=== PATIENT | female | born 2000 | race African-American/Black ===

== ENCOUNTER → 2019-05-30 | Emergency (ER) | payer OTHER ==
[~2019-05-30] VITALS: Ht 167.6 cm; Wt 61.2 kg
[2019-05-30 09:21] VITALS: BP 84/61
== END ==
LOC: ER 09:15
DX: Z53.21 Procedure and treatment not carried out due to patient leaving prior to being seen by health care provider (principal)

== ENCOUNTER 2019-09-04 17:47 | Emergency (ER) | payer OTHER ==
[~2019-09-04] VITALS: Ht 170.2 cm; Wt 52.2 kg
[2019-09-04 17:59] VITALS: BP 118/71
== END 2019-09-04 18:50 | disposition home or self-care (01) ==
LOC: ER 17:47
DX: O26.891 Other specified pregnancy related conditions, first trimester (principal); J34.89 Other specified disorders of nose and nasal sinuses; F17.210 Nicotine dependence, cigarettes, uncomplicated; Z3A.01 Less than 8 weeks gestation of pregnancy; Z71.1 Person with feared health complaint in whom no diagnosis is made

== ENCOUNTER 2020-09-21 13:14 | Emergency (ER) | payer OTHER ==
[~2020-09-21] VITALS: Ht 170.2 cm; Wt 49.9 kg
[2020-09-21 13:16] VITALS: BP 119/77
[2020-09-21] MEDS ORDERED: PRED FORTE 1% EY5 M1 LT. EYE (13:23)
[2020-09-21] MEDS ORDERED: PRELONE15 MG/5 ML PO (13:58)
[2020-09-21] MEDS ORDERED: MAGIC MOUTHWASH SW&SWALLOW (13:58)
[2020-09-21] MEDS ORDERED: CEPACOL SORE T1 EAC8 PO (14:08)
== END 2020-09-21 14:07 | disposition home or self-care (01) ==
LOC: ER 13:14
DX: J02.9 Acute pharyngitis, unspecified (principal); F17.210 Nicotine dependence, cigarettes, uncomplicated; Z88.8 Allergy status to other drugs, medicaments and biological substances

== ENCOUNTER 2020-11-21 10:40 | Emergency (ER) | payer OTHER ==
[~2020-11-21] VITALS: Ht 170.2 cm; Wt 61.2 kg
[~2020-11-21 10:40] MED LIST: CEPACOL SORE T1 EAC8 PO; MAGIC MOUTHWASH SW&SWALLOW; PRED FORTE 1% EY5 M1 LT. EYE; PRELONE15 MG/5 ML PO
[2020-11-21 10:43] VITALS: BP 121/82
[2020-11-21] MEDS ORDERED: PREDNISONE 20 M20 MG PO (11:33)
== END 2020-11-21 11:24 | disposition home or self-care (01) ==
LOC: ER 10:40
DX: J02.8 Acute pharyngitis due to other specified organisms (principal); Z20.822 Contact with and (suspected) exposure to COVID-19; F31.9 Bipolar disorder, unspecified; F20.9 Schizophrenia, unspecified; F17.210 Nicotine dependence, cigarettes, uncomplicated; Z79.899 Other long term (current) drug therapy; Z88.8 Allergy status to other drugs, medicaments and biological substances